=== PATIENT | female | born 1960 | race Caucasian/White ===

== ENCOUNTER → 2017-04-12 | Outpatient (CLI) | payer OTHER ==
[~2017-04-12] MED LIST: ASCO1CAP3 PO; B-COTAB18 PO; BIOT1CHW PO; FOLI800T PO; GABA1CAP4 PO; LEVO75TA5 PO; LPT10 PO; MULTTAB PO; OMEG100046 PO; PRT/40 PO; WARF-246 PO; WARF5TAB7 PO
--- NOTE | 2017-04-12 15:22 | MAMMOGRAPHY REPORT ---
BILATERAL DIGITAL SCREENING MAMMOGRAM TOMOSYNTHESIS WITH CAD: 04/12/2017 CLINICAL HISTORY: Routine screening. Patient has no complaints. TECHNIQUE: Breast tomosynthesis in addition to standard 2D mammography was performed. Current study was also evaluated with a Computer Aided Detection (CAD) system. COMPARISON: Comparison is made to exams dated: 04/10/2016 mammogram, 04/07/2015 mammogram, 04/06/2014 you mogram, 04/02/2013 mammogram, 02/08/2012 mammogram, and 12/23/2010 mammogram - [facility] er. BREAST COMPOSITION: There are scattered areas of fibroglandular density in both breasts. FINDINGS: No suspicious masses, calcifications, or areas of architectural distortion are noted in ei ther breast. There has been no significant interval change compared to prior exams. Scattered bilater al benign-appearing calcifications are not significantly changed. IMPRESSION: ACR BI-RADS CATEGORY 2: BENIGN There is no mammographic evidence of malignancy. A 1 year screening mammogram is recommended. The pa tient will receive written notification of the results. Approximately 10% of breast cancers are not detected with mammography. A negative mammographic report should not delay biopsy if a clinically suggestive mass is present. Natacha Powell M.D. /:04/12/2017 07:48:39 Box Office Attendant: Jessie DESAI)(M), [facility] letter sent: Normal 1/2 BI-RADS Code: ACR BI-RADS Category 2: Benign
== END | disposition home or self-care (01) ==
LOC: C.MAMM 07:26
PROVIDERS: ATTEND Family Medicine
DX: Z12.31 Encounter for screening mammogram for malignant neoplasm of breast (principal)

== ENCOUNTER 2017-04-23 17:56 | Emergency (ER) | payer OTHER ==
[~2017-04-23] VITALS: Ht 160 cm; Wt 111.9 kg
[~2017-04-23 17:56] MED LIST changes: -GABA1CAP4 PO; -LPT10 PO; -WARF5TAB7 PO
[2017-04-23 18:02] VITALS: TEMP 37; Ht 160 cm; Wt 111.9 kg
[2017-04-23 18:22] VITALS: O2SAT 96
[2017-04-23] MEDS ORDERED: OPTIRAY 320 IV PRN (18:30)
[2017-04-23 18:45] LABS: BASO % 0.5 %; BASO ABS # 0.04 K/uL (0-0.2); COMPLETE YES; EOS % 3.9 %; HEMATOCRIT 42.9 % (37-47); IG% 0.1 %; LYMPH % 32.4 %; LYMPH ABS # 2.42 K/uL (1.2-3.4); MEAN CELL VOLUME 87.4 fL (80-100); MEAN CORPUSCULAR HEMOGLOBIN 28.5 pg (25-34); MEAN CORPUSCULAR HGB CONC 32.6 g/dl (32-36); MEAN PLATELET VOLUME 10.4 fL (7.4-10.4); MONO % 8.7 %; NEUT % 54.4 %; PLATELET COUNT 201 K/uL (130-400); RED BLOOD COUNT 4.91 M/uL (4.2-5.4); WHITE BLOOD COUNT 7.46 K/uL (4.8-10.8)
[2017-04-23 18:53] LABS: INR 2.7 (0.9-1.1); PARTIAL THROMBOPLASTIN RATIO 1.4; PROTHROMBIN TIME (PATIENT) 30.3 SECONDS (9.0-12.0)
[2017-04-23] MEDS ORDERED: WARF5TAB7 PO (18:55)
[2017-04-23] MEDS ORDERED: LPT10 PO (18:55)
[2017-04-23] MEDS ORDERED: GABA1CAP4 PO (18:55)
[2017-04-23 19:01] LABS: CALCIUM 8.7 mg/dl (8.5-10.1); CREATININE 0.97 mg/dl (0.60-1.20); POTASSIUM 3.7 mmol/L (3.5-5.1)
--- NOTE | 2017-04-23 19:31 | DIAGNOSTIC IMAGING REPORT ---
CT ANGIOGRAM OF THE CHEST CLINICAL HISTORY: Right-sided chest pain. COMPARISON STUDY: Chest x-ray dated 02/16/2016. Chest CT dated 06/07/2014. TECHNIQUE: Following the IV administration of 89 cc of Optiray 320, CT angiogram of the chest was performed from the upper abdomen to the thoracic inlet utilizing the pulmonary embolus protocol. Images are reviewed in the axial, sagittal, and coronal planes. 3-D MIPS images are created and assessed. IV contrast was administered without complication. A dose lowering technique was utilized adhering to the principles of ALARA. The examination is degraded by large body habitus, and by streak artifact from the body wall abutting the CT gantry. CT DOSE: 711.12 mGy.cm FINDINGS: Thyroid: Atrophic. Thoracic aorta: The thoracic aorta is normal in caliber and demonstrates standard 3-vessel arch anatomy. No dissection is seen. Pulmonary vasculature: The pulmonary trunk is normal in caliber. There are no filling defects identified in main, lobar, or segmental pulmonary branches to suggest pulmonary embolus. Heart: The heart is normal in size and configuration, and without pericardial effusion. Lungs and pleural spaces: Evaluation of the lung parenchyma is modestly degraded by respiratory motion artifact. The trachea and central airways are clear. There is no airspace consolidation or pleural effusion. Dependent atelectasis is noted. Mediastinum: There is no mediastinal lymphadenopathy. Riddhi: Clear. Axillae: There is no axillary lymphadenopathy. Upper abdomen: The liver is enlarged and steatotic. The spleen is top normal in size. Skeletal structures: No lytic or blastic bony lesions are seen. Mild degenerative change is noted in the thoracic spine. IMPRESSION: 1. There is no evidence of pulmonary embolus in the main, lobar, or segmental pulmonary arteries. 2. There is no airspace consolidation or pleural effusion. 3. Hepatic steatosis. Electronically signed by: Vinnie Mesa M.D. 04/23/2017 7:29 PM Dictated Date/Time: 04/23/2017 7:25 PM
--- NOTE | 2017-04-23 20:42 | DIAGNOSTIC IMAGING REPORT ---
ULTRASOUND RIGHT UPPER QUADRANT ABDOMEN CLINICAL HISTORY: Right upper quadrant abdominal pain. COMPARISON STUDY: Nuclear hepatobiliary scan dated 12/13/2011. TECHNIQUE: Real-time, grayscale, and color flow sonography of the right upper quadrant of the abdomen was performed. Images are reviewed in the transverse and longitudinal planes. FINDINGS: Liver: The liver is enlarged measuring over 20 cm in length. The liver demonstrates heterogeneously increased echotexture consistent with hepatic steatosis. Fatty sparing is seen adjacent to gallbladder fossa. There is no intrahepatic biliary ductal dilatation. The main portal vein is patent. Gallbladder: The gallbladder is normal in appearance. No gallstones are identified. There is no gallbladder wall thickening or pericholecystic fluid. A sonographic Diamond's sign is reportedly absent. The common bile duct measures up to 0.5 cm in diameter. Pancreas: Not well visualized due to overlying bowel gas. Right kidney: Survey images of the right kidney demonstrate mild cortical atrophy. There is no hydronephrosis. Ascites: None. IMPRESSION: 1. No acute sonographic abnormality is identified in the right upper quadrant. No gallstones are seen. 2. Hepatomegaly and severe hepatic steatosis. 3. Nonvisualization of the pancreas. Electronically signed by: Vinnie Mesa M.D. 04/23/2017 8:41 PM Dictated Date/Time: 04/23/2017 8:39 PM
--- NOTE | 2017-04-23 21:29 | EMERGENCY ROOM VISIT NOTE ---
History First contact with patient: 18:10 Chief Complaint: CHEST PAIN Stated Complaint: PAIN IN CHEST AROUND BACK Nursing Triage Summary: right sided rib pain that wraps around to her back with shortness of breath x 3 weeks. History of Present Illness The patient is a 57 year old female who presents to the Emergency Room with complaints of pain in the right chest/ribs which radiates into the back. She states the pain has been ongoing for 1 month. She has associated shortness of breath with exertion and at times shortness of breath at rest. She saw her primary care provider and she states they were unsure what is causing the pain. She has a history of PE and states this feels similar. She does take warfarin and states that her INR has been slightly off recently. The patient has a history of factor V Leiden deficiency. She denies any nausea or vomiting associated with the pain. She denies any rashes. Review of Systems A complete 10 point review of systems was reviewed with the patient with pertinent positives and negatives as per history of present illness. All else were negative. Past Medical/Surgical History Medical Problems: (1) Cervical cancer (2) Esophageal Reflux (3) Esophageal Reflux (4) Hypothyroidism (5) Pulmonary embolus Family History Cancer Social History Smoking Status: Former Smoker Alcohol Use: none Marital Status: Housing Status: lives with family Occupation Status: employed Current/Historical Medications Scheduled Ascorbic Acid (Vitamin C), 500 MG PO QAM Atorvastatin (Atorvastatin Calcium), 10 MG PO QPM B-Complex Vitamins (Vitamin B Complex), 1 TAB PO QAM Biotin W/ Vitamins C & E (Hair Skin & Nails ... 1250-7.5-7.5 Mcg-mg-Unt), 1 TAB PO QAM Folic Acid (Folic Acid), 800 MCG PO QAM Gabapentin (Gabapentin), 300 MG PO BID Levothyroxine Sodium (Levothyroxine Sodium), 1 TAB PO DAILY Multivitamins/Minerals (Mvi With Minerals), 1 TAB PO QAM Fiatt-3 Fatty Acids (Fiatt 3), 1 TAB PO QAM Pantoprazole (Pantoprazole Sodium), 40 MG PO QAM Warfarin Sod (Jantoven), 7.5 MG PO SUNDAY Warfarin Sodium (Warfarin Sodium), 5 MG PO [id number] Physical Exam Vital Signs Date Time Temp Pulse Resp B/P (MAP) Pulse Ox O2 Delivery O2 Flow Rate FiO2 04/23/17 21:50 66 20 136/84 96 Room Air 04/23/17 19:51 88 20 144/77 04/23/17 19:10 69 04/23/17 18:22 96 Room Air 04/23/17 18:02 37.0 72 20 133/92 96 Physical Exam VITALS: Vitals are noted on the nurse's note and reviewed by myself. Vital signs stable. GENERAL: This is a 57-year-old female, in no acute distress, nondiaphoretic, well-developed well-nourished. SKIN: The skin was without rashes. EARS: External auditory canals clear, tympanic membranes pearly ibarra without erythema or effusion bilaterally. EYES: Pupils equal round and reactive to light and accommodation. MOUTH: Mucous membranes moist. NECK: Supple without nuchal rigidity. No lymphadenopathy. HEART: Regular rate and rhythm without murmurs gallops or rubs. LUNGS: Clear to auscultation bilaterally without wheezes, rales or rhonchi. ABDOMEN: Soft, nontender to palpation. NEURO: Patient was alert and oriented to person place and time. Medical Decision & Procedures ER Provider Diagnostic Interpretation: CT ANGIOGRAM OF THE CHEST IMPRESSION: 1. There is no evidence of pulmonary embolus in the main, lobar, or segmental pulmonary arteries. 2. There is no airspace consolidation or pleural effusion. 3. Hepatic steatosis. ULTRASOUND RIGHT UPPER QUADRANT ABDOMEN IMPRESSION: 1. No acute sonographic abnormality is identified in the right upper quadrant. No gallstones are seen. 2. Hepatomegaly and severe hepatic steatosis. 3. Nonvisualization of the pancreas. Laboratory Results 04/23/17 18:22 Red Blood Count 4.91, Mean Corpuscular Volume 87.4, Mean Corpuscular Hemoglobin 28.5, Mean Corpuscular Hemoglobin Concent 32.6, Mean Platelet Volume 10.4, Neutrophils (%) (Auto) 54.4, Lymphocytes (%) (Auto) 32.4, Monocytes (%) (Auto) 8.7, Eosinophils (%) (Auto) 3.9, Basophils (%) (Auto) 0.5, Neutrophils # (Auto) 4.05, Lymphocytes # (Auto) 2.42, Monocytes # (Auto) 0.65, Eosinophils # (Auto) 0.29, Basophils # (Auto) 0.04 04/23/17 18:22 Test 7/24/17 18:22 White Blood Count 7.46 K/uL (4.8-10.8) Red Blood Count 4.91 M/uL (4.2-5.4) Hemoglobin 14.0 g/dL (12.0-16.0) Hematocrit 42.9 % (37-47) Mean Corpuscular Volume 87.4 fL (80-100) Mean Corpuscular Hemoglobin 28.5 pg (25-34) Mean Corpuscular Hemoglobin Concent 32.6 g/dl (32-36) Platelet Count 201 K/uL (130-400) Mean Platelet Volume 10.4 fL (7.4-10.4) Neutrophils (%) (Auto) 54.4 % Lymphocytes (%) (Auto) 32.4 % Monocytes (%) (Auto) 8.7 % Eosinophils (%) (Auto) 3.9 % Basophils (%) (Auto) 0.5 % Neutrophils # (Auto) 4.05 K/uL (1.4-6.5) Lymphocytes # (Auto) 2.42 K/uL (1.2-3.4) Monocytes # (Auto) 0.65 K/uL (0.11-0.59) Eosinophils # (Auto) 0.29 K/uL (0-0.5) Basophils # (Auto) 0.04 K/uL (0-0.2) RDW Standard Deviation 43.0 fL (36.4-46.3) RDW Coefficient of Variation 13.3 % (11.5-14.5) Immature Granulocyte % (Auto) 0.1 % Immature Granulocyte # (Auto) 0.01 K/uL (0.00-0.02) Prothrombin Time 30.3 SECONDS (9.0-12.0) Prothromb Time International Ratio 2.7 (0.9-1.1) Activated Partial Thromboplast Time 36.6 SECONDS (21.0-31.0) Partial Thromboplastin Ratio 1.4 Anion Gap 5.0 mmol/L (3-11) Est Creatinine Clear Calc Drug Dose 75.1 ml/min Estimated GFR () 74.1 Estimated GFR (Non- 63.9 BUN/Creatinine Ratio 12.0 (10-20) Calcium Level 8.7 mg/dl (8.5-10.1) Total Bilirubin 0.4 mg/dl (0.2-1) Direct Bilirubin 0.1 mg/dl (0-0.2) Aspartate Amino Transf (AST/SGOT) 18 U/L (15-37) Alanine Aminotransferase (ALT/SGPT) 36 U/L (12-78) Alkaline Phosphatase 77 U/L (45-117) Total Protein 6.7 gm/dl (6.4-8.2) Albumin 3.3 gm/dl (3.4-5.0) Lipase 142 U/L (73-393) ED Course The patient was evaluated as above. Labs were drawn and IV access was obtained. Patient was reevaluated and findings were discussed. She will be discharged home. Discharge instructions were reviewed with the patient. The patient verbalized understanding of my assessment and treatment plan and was discharged home in good condition. Medical Decision Differential diagnosis includes pulmonary embolism, pneumonia, malignancy, rib injury, musculoskeletal, gallbladder disease, among others. The patient is a 57-year-old female who presents today complaining of right flank/rib pain. Patient states this pain is consistent with her previous pulmonary embolism. For this reason, CT angiogram of the chest was performed and read by radiology with no acute PEs noted. Ultrasound of the gallbladder was performed and showed no evidence of gallbladder disease. Labs were unremarkable, with no leukocytosis, anemia or concerning electrolyte abnormalities. Kidney and liver functions were within normal limits. Urinalysis was not suggestive of infection. The patient's pain is likely musculoskeletal in nature. She was encouraged to follow-up with her primary care provider for further evaluation and treatment. Based on the patient's presentation and work up, I feel the patient is stable for outpatient treatment. The patient was educated to return to the emergency department for any worsening of their current condition or new/concerning symptoms. She will follow up with her PCP. Medication Reconcilliation Current Medication List: was personally reviewed by me Blood Pressure Screening Patient's blood pressure: Elevated blood pressure Blood pressure disposition: Elevated BP felt to be situational Impression Primary Impression: Right flank pain Departure Information Dispostion Home / Self-Care Condition GOOD Referrals Heidi Arriola M.D. (MEDICAL) (PCP) Patient Instructions My [facility] Additional Instructions For pain control, you can use the following [id number] medicines (if >12 yo): - Regular strength (325mg/tab) Tylenol (acetaminophen) 2 tabs every 4-6 hours as needed. Do not exceed 12 tablets in a 24 hour period. Avoid taking more than 4 grams (4000 mg) of Tylenol per day. This includes any other sources of acetaminophen you may take on a regular basis. You may apply a heating pad to the ribs for relief. Follow-up with your primary care provider for further evaluation.
[2017-04-23 21:50] VITALS: BP 136/84; PULSE 66; O2SAT 96
== END 2017-04-23 21:52 | disposition home or self-care (01) ==
LOC: C.EDB 17:57 → C.EDA 21:52
DX: R10.30 Lower abdominal pain, unspecified (principal); Z86.711 Personal history of pulmonary embolism; Z79.01 Long term (current) use of anticoagulants; D68.2 Hereditary deficiency of other clotting factors; Z85.41 Personal history of malignant neoplasm of cervix uteri; K21.9 Gastro-esophageal reflux disease without esophagitis; E03.9 Hypothyroidism, unspecified; Z80.9 Family history of malignant neoplasm, unspecified; Z87.891 Personal history of nicotine dependence; Z79.899 Other long term (current) drug therapy

== ENCOUNTER 2021-08-22 12:58 | Observation (INO) ==
[2021-08-22 13:27] LABS: Basophils # (auto) 0.02 K/uL (0-0.2); Basophils % (auto) 0.4 %; Eosinophils # (auto) 0.04 K/uL (0-0.5); Eosinophils % (auto) 0.7 %; Hematocrit (blood only) 46.3 % (37-47); Hemoglobin 15.5 g/dL (12.0-16.0); Immature Granulocytes # (auto) 0.01 K/uL (0.00-0.02); Immature Granulocytes % (auto) 0.2 %; Lymphocytes # (auto) 1.14 K/uL (1.2-3.4); Lymphocytes % (auto) 21.2 %; Mean Corpuscular Hemoglobin 30.5 pg (25-34); Mean Corpuscular Hgb Conc 33.5 g/dL (32-36); Mean Corpuscular Volume 91.1 fL (80-100); Mean Platelet Volume 10.1 fL (7.4-10.4); Monocytes # (auto) 0.69 K/uL (0.11-0.59); Monocytes % (auto) 12.8 %; Neutrophils # (auto) 3.49 K/uL (1.4-6.5); Neutrophils % (auto) 64.7 %; Platelet Count 182 K/uL (130-400); RDW Coefficient of Variation 13.1 % (11.5-14.5); RDW Standard Deviation 43.8 fL (36.4-46.3); Red Blood Count 5.08 M/uL (4.2-5.4); White Blood Count 5.39 K/uL (4.8-10.8)
[2021-08-22 13:37] LABS: INR 1.9 (0.9-1.1); Partial Thromboplastin Ratio 1.3; Partial Thromboplastin Time 33.7 Seconds (21.0-31.0)
--- NOTE | 2021-08-22 13:43 | XRay Report ---
XR chest 2V PA/lateral HISTORY: Atypical Chest Pain COMPARISON: Chest and left rib series 02/13/2021. FINDINGS: The lungs are clear. Cardiac silhouette is normal in size. No pleural effusions. No pneumot horax. IMPRESSION: No acute process. ACT 112: Negative or not required by law. Electronically signed by: Al Gil M.D. 08/22/2021 1:41 PM
[2021-08-22 13:44] LABS: Alanine Aminotransferase 49 U/L (12-78); Albumin Level 3.7 gm/dl (3.4-5.0); Aspartate Aminotransferase 49 U/L (15-37); BUN Creatinine Ratio 15.6 (10-20); Blood Urea Nitrogen 14 mg/dl (7-18); Calcium 9.4 mg/dl (8.5-10.1); Carbon Dioxide 25 mmol/L (21-32); Chloride 107 mmol/L (98-107); Creatinine Clr Calc Pharmacy 78.5 ml/min; Est GFR (African American) 76.8 ml/min; Est GFR (Non-African American) 66.3 ml/min; Glucose 120 mg/dl (70-99); Potassium 3.8 mmol/L (3.5-5.1); Sodium 138 mmol/L (136-145)
[2021-08-22 13:51] LABS: Albumin Globulin Ratio 0.8 (0.9-2); Alkaline Phosphatase 72 U/L (45-117); Bilirubin,Total 0.6 mg/dl (0.2-1); Globulin 4.4 gm/dl (2.5-4.0); Total Protein 8.1 gm/dl (6.4-8.2); Troponin I < 0.015 ng/ml (0-0.045)
[2021-08-22] MEDS ORDERED: OPTIRAY 320 125ml IV ONE (15:52)
--- NOTE | 2021-08-22 16:08 | CT Scan Report ---
CT angio chest PE protocol CT DOSE: 801.67 mGy.cm HISTORY: 61 years-old Female with chest pain, factor V. Acute atypical chest pain with shortness of breath. TECHNIQUE: Multiple CTA images of the chest were obtained after the intravenous administration of 121 ml Optiray. Coronal and sagittal MIPS were obtained from the axial data set and were submitted for review. All measurements were obtained according to NASCET criteria. A dose lowering technique was u tilized adhering to the principles of ALARA. COMPARISON: Chest radiograph of same day, CTA chest 04/23/2017 FINDINGS: CTA: The heart is normal in size. No pericardial effusion. Minimal coronary artery calcifications. No thor acic aortic aneurysm or dissection. Patency of the imaged great vessels. Reflux of contrast into the IVC. Satisfactory opacification of the pulmonary artery. No filling defects to suggest thromboembolic disease. CT CHEST: Unremarkable thyroid. Mildly enlarged bilateral physiologic appearing axillary chain lymph nodes. No pneumothorax, pleural effusion, airspace consolidation or overt pulmonary edema. Minimal venous air w ithin the right retrosternal distribution, possibly iatrogenic from IV site. Mild cylindrical bibasil ar bronchiectasis with minimal bibasilar atelectasis/scarring. Central airways are patent. Hepatosplenomegaly with hepatic steatosis. There is mild distal esophageal wall thickening. Unremarka ble soft tissues. No acute fracture. Spondylitic spurring of the spine. IMPRESSION: 1. No acute intrathoracic abnormality. No pulmonary emboli. 2. Hepatosplenomegaly with hepatic steatosis. 3. Mild nonspecific distal esophageal wall thickening. ACT 112: Negative or not required by law. The above report was generated using voice recognition software. It may contain grammatical, syntax o r spelling errors. Electronically signed by: Chris Naqvi M.D. 08/22/2021 4:06 PM
--- NOTE | 2021-08-22 16:40 | Emergency Department Note ---
Impression & Plan Retrosternal chest pain ED Provider Note INFORMANT: Patient ED PROVIDER(S): Stanislav Pretty MD CHIEF COMPLAINT: Chest pain PLAN: Disposition: Admitted none Condition: Good Outpatient prescription management: none Referral: None MEDICAL DECISION MAKING: Patient presented because of intermittent chest pain. Work-up did not reveal any obvious sign of an elevated troponin. Her ECG was unremarkable. She was pain-free at the time. The patient underwent CT imaging because her INR was slightly subtherapeutic and she has a history of PE. This was negative. Unfortunately the patient's history is concerning given the exertional component and complaints of diaphoresis. She cannot tolerate a treadmill stress test and should have a rule out with formal stress testing before discharge. I discussed this with the patient and she was in agreement. [facility] Case was discussed and diagnostics were reviewed. The patient was evaluated in the ER for further management. Triage Nursing notes reviewed and agree them. Vital Signs: reviewed and remarkable for no significant abnormalities Differential diagnosis: Cardiac ischemia, aortic dissection, pulmonary embolism, pneumothorax, pneumonia, pericarditis, myocarditis, esophageal rupture, GERD, cholecystitis, pancreatitis, musculoskeletal, as well as other pathologies. Diagnostics interpreted by me: ECG: Twelve-lead ECG reveals normal sinus rhythm 73 bpm. Left axis deviation. LVH. Poor R wave progression. No ST elevation. Cardiac Monitoring: Cardiac monitoring ordered by me: The patient was placed on continuous cardiac monitoring and observed. It revealed a normal sinus rhythm at 89 beats per minute without ectopy or evidence of dysrhythmia. Imaging studies: Chest x-ray. Findings: A chest x-ray was performed and revealed no pneumothorax, effusion, infiltrate, pulmonary edema, free air under the diaphragm, or wide mediastinum. Impression: No acute disease. CT PE study is negative for pulmonary embolism. Mild thickening of the distal esophagus noted. I refer you to the EMR for further details. HPI: The patient is a 61 year old female who presents to the Emergency Room with complaints of intermittent retrosternal chest pain that started last night. This started yesterday evening and is fluctuating but worse with exertion. The patient does state that she has been out of her heartburn medication for 2 days. The patient also notes the following associated symptoms, feeling short of breath and sweaty. The patient has used rest for relieving factors. Current pain is rated as 0/10. Has concerns as she has hypercoagulability. States this felt somewhat similar to her prior PE. Pt denies LOC, headache, fevers, chills, visual changes, neck pain, nausea, vomiting, abdominal pain, back pain, melena, hematochezia, urinary symptoms, numbness, weakness, lymphadenopathy, rash, or other complaints. ROS: See above HPI for pertinent positives & negatives. A total of 10 systems reviewed and were otherwise negative. PAST MEDICAL HISTORY:See Below , factor V Leiden, pulmonary embolism, anticoagulated PAST SURGICAL HISTORY:See Below, FAMILY HISTORY:See Below SOCIAL HISTORY:See Below, non-smoker HOME MEDICATIONS:See Below ALLERGIES:See Below VITALS:See Below PHYSICAL EXAMINATION: GENERAL: Awake, alert, well-appearing, in no distress HENT: Normocephalic, atraumatic. Oropharynx unremarkable. EYES: Normal conjunctiva on the left. Bloodshot sclera on the medial aspect of the right eye but otherwise sclera non-icteric. NECK: Inspection normal. Non-tender. Supple. No nuchal rigidity. FROM. No masses. RESPIRATORY: Clear to auscultation. No wheezes. No rales. Normal respiratory effort. CARDIAC: Normal rate. Normal rhythm. No murmurs. No rubs. Extremities warm and well perfused. Pulses equal. No JVD. GI: Soft, non-distended. No tenderness to palpation. No rebound or guarding. No masses. RECTAL: Deferred. MUSCULOSKELETAL: Atraumatic. Chest examination reveals no tenderness. The back is symmetrical on inspection without obvious abnormality. There is no CVA tenderness to palpation. No joint edema. LOWER EXTREMITIES: Calves are equal size bilaterally and non-tender. No edema. No discoloration. NEURO: Normal sensorium. No sensory or motor deficits noted. SKIN: No rash or jaundice noted. Stanislav Pretty MD Past Med/Surg History Medical History (Updated 08/22/21 @ 16:55 by Nupur Yost PA-C) Anxiety Cervical cancer diagnosed 1994--only had cone biopsy performed Depression Factor V Leiden GERD (gastroesophageal reflux disease) History of atrial fibrillation per pt had once was scheduled for a cardioversion and then HR went back into regular rhythm and procedure not performed--follows with Dr. Sierra History of kidney stones Hyperlipidemia Hypothyroidism Osteoarthritis Pulmonary embolus diagnosed 06/2014--found to have Factor V Liden--reason for warfarin Sleep apnea cpap, pt reports compliance, at least 4 hours of use per night, usually 8 hours. Surgical History History of anesthesia reaction severe sore throat for months after cone biopsy procedure History of section History of colonoscopy with polypectomy History of cone biopsy of cervix History of cystoscopy History of tooth extraction Family History Other No family history of adverse response to anesthesia Social History Smoking Status: Former smoker Tobacco Type: Cigarettes Smoking End Date: ; Second Hand Exposure: No; Do You Dip or Chew Tobacco: No; Tobacco Cessation Education Requested by Patient: No Hx Alcohol Use: No Hx Substance Use: No Preferred Language: Libyan Communication Ability: Effective Airport Screener Required: No Beliefs That Will Affect Care: None Current Living Situation: Family Current Living Situation Comment: Lives with and son Feels Safe at Home: Yes Safety Concerns: Feels Safe At This Time Assistive Devices: None Allergies Allergies Allergy/AdvReac Type Severity Reaction Status Date / Time No Known Allergies Allergy Verified 08/22/21 17:04 Home Meds Home Medications Medication Instructions Recorded Confirmed atorvastatin 20 mg tablet 10 mg PO PM 10/02/18 08/22/21 dexlansoprazole 60 mg 60 mg PO HS 10/02/18 08/22/21 capsule,biphase delayed release (Dexilant) duloxetine 30 mg capsule,delayed 60 mg PO QAM 10/02/18 08/22/21 release (Cymbalta) levothyroxine 75 mcg tablet 75 mcg PO QAM 10/02/18 08/22/21 multivitamin 1 tab PO QAM 10/02/18 08/22/21 pantoprazole 40 mg tablet,delayed 40 mg PO QAM 10/02/18 08/22/21 release colestipol 1 gram tablet 1 g PO QAM 10/22/20 08/22/21 warfarin 5 mg tablet 5 mg PO 5XWK 10/22/20 08/22/21 acetaminophen 650 mg 1,300 mg PO Q12H 08/22/21 08/22/21 tablet,extended release (Tylenol Arthritis Pain) multivitamin with minerals 1 tab PO DAILY 08/22/21 08/22/21 (Hair,Skin and Nails) warfarin 5 mg tablet 2.5 mg PO 2XWK 08/22/21 08/22/21 Results & Data (ED) Vital Signs Vital Signs - 24 hr 08/22/21 13:06 08/22/21 14:34 08/22/21 14:35 Temperature 36.3 C L Temperature Source Temporal Artery Scan Pulse Rate 85 81 Pulse Rate [Radial] 84 Pulse Rate from SpO2 Sensor 81 Respiratory Rate 18 20 18 Respiratory Effort / Characteristics Non-Labored Spontaneous Respiratory Depth Normal Blood Pressure 171/99 H 157/87 H Blood Pressure [Right Arm] 157/87 H Blood Pressure Mean 123 110 Blood Pressure Mean [Right Arm] 110 Pulse Oximetry 95 97 95 Oxygen Delivery Method Room Air Room Air Room Air Sepsis Recent Fever Within 48 Hours No Sepsis New/Unexplained Change in Mental Status No Sepsis Action Taken by Nursing No Action Required 08/22/21 15:00 08/22/21 15:30 08/22/21 16:00 Temperature Temperature Source Pulse Rate 79 81 78 Pulse Rate [Radial] Pulse Rate from SpO2 Sensor 80 82 78 Respiratory Rate 17 19 23 Respiratory Effort / Characteristics Respiratory Depth Blood Pressure 122/77 156/80 H Blood Pressure [Right Arm] Blood Pressure Mean 92 105 Blood Pressure Mean [Right Arm] Pulse Oximetry 95 95 96 Oxygen Delivery Method Room Air Room Air Room Air Sepsis Recent Fever Within 48 Hours Sepsis New/Unexplained Change in Mental Status Sepsis Action Taken by Nursing 08/22/21 16:30 Temperature Temperature Source Pulse Rate 80 Pulse Rate [Radial] Pulse Rate from SpO2 Sensor 81 Respiratory Rate 17 Respiratory Effort / Characteristics Respiratory Depth Blood Pressure 120/81 Blood Pressure [Right Arm] Blood Pressure Mean 94 Blood Pressure Mean [Right Arm] Pulse Oximetry 97 Oxygen Delivery Method Room Air Sepsis Recent Fever Within 48 Hours Sepsis New/Unexplained Change in Mental Status Sepsis Action Taken by Nursing Laboratory Data Result diagrams: 08/22/21 13:11 08/22/21 13:11 Lab Results 08/22/21 08/22/21 08/22/21 Range/Units 13:11 13:11 13:11 WBC 5.39 (4.8-10.8) K/uL RBC 5.08 (4.2-5.4) M/uL Hgb 15.5 (12.0-16.0) g/dL Hct 46.3 (37-47) % MCV 91.1 (80-100) fL MCH 30.5 (25-34) pg MCHC 33.5 (32-36) g/dL RDW Std Deviation 43.8 (36.4-46.3) fL RDW Coeff of Shayla 13.1 (11.5-14.5) % Plt Count 182 (130-400) K/uL MPV 10.1 (7.4-10.4) fL Immature Gran % (Auto) 0.2 % Neut % (Auto) 64.7 % Lymph % (Auto) 21.2 % Ada % (Auto) 12.8 % Eos % (Auto) 0.7 % Baso % (Auto) 0.4 % Neut # (Auto) 3.49 (1.4-6.5) K/uL Lymph # (Auto) 1.14 L (1.2-3.4) K/uL Ada # (Auto) 0.69 H (0.11-0.59) K/uL Eos # (Auto) 0.04 (0-0.5) K/uL Baso # (Auto) 0.02 (0-0.2) K/uL Immature Gran # (Auto) 0.01 (0.00-0.02) K/uL PT 18.0 H (9.0-12.0) Seconds INR 1.9 H (0.9-1.1) APTT 33.7 H (21.0-31.0) Seconds PTT Ratio 1.3 Sodium 138 (136-145) mmol/L Potassium 3.8 (3.5-5.1) mmol/L Chloride 107 (98-107) mmol/L Carbon Dioxide 25 (21-32) mmol/L Anion Gap 6.0 (3-11) BUN 14 (7-18) mg/dl Creatinine 0.92 (0.6-1.2) mg/dl Est Cr Clr Drug Dosing 78.5 ml/min Est GFR ( Amer) 76.8 ml/min Est GFR (Non-Af Amer) 66.3 ml/min BUN/Creatinine Ratio 15.6 (10-20) Glucose 120 H (70-99) mg/dl Calcium 9.4 (8.5-10.1) mg/dl Total Bilirubin 0.6 (0.2-1) mg/dl AST 49 H (15-37) U/L ALT 49 (12-78) U/L Alkaline Phosphatase 72 (45-117) U/L Troponin I < 0.015 (0-0.045) ng/ml Total Protein 8.1 (6.4-8.2) gm/dl Albumin 3.7 (3.4-5.0) gm/dl Globulin 4.4 H (2.5-4.0) gm/dl Albumin/Globulin Ratio 0.8 L (0.9-2) SARS-CoV-2, RNA, NAAT (NEGATIVE) 08/22/21 Range/Units 16:50 WBC (4.8-10.8) K/uL RBC (4.2-5.4) M/uL Hgb (12.0-16.0) g/dL Hct (37-47) % MCV (80-100) fL MCH (25-34) pg MCHC (32-36) g/dL RDW Std Deviation (36.4-46.3) fL RDW Coeff of Shayla (11.5-14.5) % Plt Count (130-400) K/uL MPV (7.4-10.4) fL Immature Gran % (Auto) % Neut % (Auto) % Lymph % (Auto) % Ada % (Auto) % Eos % (Auto) % Baso % (Auto) % Neut # (Auto) (1.4-6.5) K/uL Lymph # (Auto) (1.2-3.4) K/uL Ada # (Auto) (0.11-0.59) K/uL Eos # (Auto) (0-0.5) K/uL Baso # (Auto) (0-0.2) K/uL Immature Gran # (Auto) (0.00-0.02) K/uL PT (9.0-12.0) Seconds INR (0.9-1.1) APTT (21.0-31.0) Seconds PTT Ratio Sodium (136-145) mmol/L Potassium (3.5-5.1) mmol/L Chloride (98-107) mmol/L Carbon Dioxide (21-32) mmol/L Anion Gap (3-11) BUN (7-18) mg/dl Creatinine (0.6-1.2) mg/dl Est Cr Clr Drug Dosing ml/min Est GFR ( Amer) ml/min Est GFR (Non-Af Amer) ml/min BUN/Creatinine Ratio (10-20) Glucose (70-99) mg/dl Calcium (8.5-10.1) mg/dl Total Bilirubin (0.2-1) mg/dl AST (15-37) U/L ALT (12-78) U/L Alkaline Phosphatase (45-117) U/L Troponin I (0-0.045) ng/ml Total Protein (6.4-8.2) gm/dl Albumin (3.4-5.0) gm/dl Globulin (2.5-4.0) gm/dl Albumin/Globulin Ratio (0.9-2) SARS-CoV-2, RNA, NAAT NEGATIVE (NEGATIVE) Administered Medications Acetaminophen (Acetaminophen 325 Mg Tab) 650 mg PO Q4H PRN PRN Reason: Moderate Pain Stop: 09/21/21 20:21 Last Admin: 08/22/21 21:34 Dose: 650 mg Documented by: [id number] Atorvastatin Calcium (Atorvastatin 20 Mg Tab) 10 mg PO PM MICHELA Stop: 09/21/21 20:59 Last Admin: 08/22/21 21:24 Dose: 10 mg Documented by: [id number] Famotidine 20 mg/ Syringe 5 mls @ 2.5 mls/min IV BID PRN PRN Reason: Heartburn Stop: 09/21/21 20:59 Last Admin: 08/22/21 22:02 Dose: 2.5 mls/min Documented by: [id number] Discontinued Medications Ioversol (Optiray 320 125ml) 121 ml IV ONCE ONE Stop: 08/22/21 15:53 Last Admin: 08/22/21 15:52 Dose: 121 ml Documented by: [id number] Warfarin Sodium (Warfarin Sod 5 Mg Tab) 5 mg PO NOW ONE Stop: 08/22/21 19:13 Last Admin: 08/22/21 21:23 Dose: Not Given Documented by: [id number] Imaging Data Radiologist's Impression: Chest X-Ray 08/22/21 13:09 XR chest 2V PA/lateral HISTORY: Atypical Chest Pain COMPARISON: Chest and left rib series 02/13/2021. FINDINGS: The lungs are clear. Cardiac silhouette is normal in size. No pleural effusions. No pneumothorax. IMPRESSION: No acute process. ACT 112: Negative or not required by law. Electronically signed by: Al Gil M.D. 08/22/2021 1:41 PM Chest CTA 08/22/21 14:51 CT angio chest PE protocol CT DOSE: 801.67 mGy.cm HISTORY: 61 years-old Female with chest pain, factor V. Acute atypical chest pain with shortness of breath. TECHNIQUE: Multiple CTA images of the chest were obtained after the intravenous administration of 121 ml Optiray. Coronal and sagittal MIPS were obtained from the axial data set and were submitted for review. All measurements were obtained according to NASCET criteria. A dose lowering technique was utilized adhering to the principles of ALARA. COMPARISON: Chest radiograph of same day, CTA chest 04/23/2017 FINDINGS: CTA: The heart is normal in size. No pericardial effusion. Minimal coronary artery calcifications. No thoracic aortic aneurysm or dissection. Patency of the imaged great vessels. Reflux of contrast into the IVC. Satisfactory opacification of the pulmonary artery. No filling defects to suggest thromboembolic disease. CT CHEST: Unremarkable thyroid. Mildly enlarged bilateral physiologic appearing axillary chain lymph nodes. No pneumothorax, pleural effusion, airspace consolidation or overt pulmonary edema. Minimal venous air within the right retrosternal distribution, possibly iatrogenic from IV site. Mild cylindrical bibasilar bronchiectasis with minimal bibasilar atelectasis/scarring. Central airways are patent. Hepatosplenomegaly with hepatic steatosis. There is mild distal esophageal wall thickening. Unremarkable soft tissues. No acute fracture. Spondylitic spurring of the spine. IMPRESSION: 1. No acute intrathoracic abnormality. No pulmonary emboli. 2. Hepatosplenomegaly with hepatic steatosis. 3. Mild nonspecific distal esophageal wall thickening. ACT 112: Negative or not required by law. The above report was generated using voice recognition software. It may contain grammatical, syntax or spelling errors. Electronically signed by: Chris Naqvi M.D. 08/22/2021 4:06 PM Discharge Plan Visit Data Chief Complaint: Chest Pain Stated Complaint: CHEST PAINS ED Provider: Stanislav Pretty Discharge Problem: Retrosternal chest pain Patient Disposition: Admitted As Inpatient Discharge Instructions Interventions: ED Discharge Assessment Last Done: 08/22/21 18:46
--- NOTE | 2021-08-22 17:01 | History & Physical Report ---
Date of Service August 22, 2021 Assessment & Plan (1) Chest pain: Plan: - Admit to tele for observation for r/o -- Primarily this sounds musculoskeletal with ability to reproduce on exam, lifting heavy groceries, laundry and the dog that is 80lbs on her chest. We d iscussed increasing exercise tolerance and diet to loose weight at bedside in length. - Trend cardiac biomarkers, initial set was negative - EKG reviewed as above - Check 2 D echo - If negative enzymes can consider a stress test tomorrow morning - will make NPO at midnight for anticipated dobutamine stress test - pt would not be able to do a treadmill test due to osteoarthritis of the knees. - PT/OT consulted - Consider cardiology consultation (2) Factor V Leiden: Plan: - hx of such, continue anticoagulation with Coumadin (3) History of atrial fibrillation: Plan: - Paroxysmal - Not on rate controlling agent. She is anticoagulated on coumadin. (4) Pulmonary embolus: Plan: - Hx of such, continue on coumadin (5) Hyperlipidemia: Plan: - Cont statin therapy - Check lipid panel with am labs (6) Hypothyroidism: Plan: - Continue levothyroxine 75 mcg daily (7) Osteoarthritis: Plan: - Hx of such DVT ppx: - teds, scds, Coumadin CODE: Dispo: From home, likely to remain in the hospital x 1 day on observation History of Present Illness Chief Complaint: Chest pain Primary Care Provider: Zen Sellers MD This is a 61 yo F with PMHx of paroxysmal A. fib, morbid obesity with BMI of 44.1, HLD, factor V Leiden, hypothyroidism, GERD, [place] who presents with acute intermittent exertional chest pain which started last night. Patient is currently chest pain-free in the ER. Patient notes that she has experienced this chest pain whenever she was sitting at rest, or lying flat. It does not seem to be particularly exertional from her report. She characterizes the chest pain as nonradiating, a heaviness with shortness of breath. Earlier this morning she did become slightly diaphoretic and pale while attempting to do some laundry. She also notes lifting some heavy groceries yesterday where she typically does not participate in this kind of activity. [place] that this feels somewhat like her previous episode of having a pulmonary embolism, was concerned and therefore presented to the ER. She notes having 3 dogs, and that one is approximately 80 pounds, these dogs typically lie on her chest and she admits to having increased pain at that point in time, and the pain is relieved whenever her dogs get off of her chest. She reports having ran out of her omeprazole 3 to 4 days ago and had been taking [id number] Zantac in the meantime. She has experienced nausea x1, no vomiting, tolerating oral intake without difficulty, no diarrhea or constipation. CTA was obtained and is negative for acute PE. INR was slightly subtherapeutic at 1.9. Initial troponin is negative, EKG is reviewed and essentially negative compared to her previous EKGs. Allergies Allergy/AdvReac Type Severity Reaction Status Date / Time No Known Allergies Allergy Verified 08/22/21 17:04 Home Medications Medication Instructions Recorded Confirmed Type atorvastatin 20 mg tablet 10 mg PO PM 10/02/18 08/22/21 History dexlansoprazole 60 mg 60 mg PO HS 10/02/18 08/22/21 History capsule,biphase delayed release (Dexilant) duloxetine 30 mg capsule,delayed 60 mg PO QAM 10/02/18 08/22/21 History release (Cymbalta) levothyroxine 75 mcg tablet 75 mcg PO QAM 10/02/18 08/22/21 History multivitamin 1 tab PO QAM 10/02/18 08/22/21 History pantoprazole 40 mg tablet,delayed 40 mg PO QAM 10/02/18 08/22/21 History release colestipol 1 gram tablet 1 g PO QAM 10/22/20 08/22/21 History warfarin 5 mg tablet 5 mg PO 5XWK 10/22/20 08/22/21 History acetaminophen 650 mg 1,300 mg PO Q12H 08/22/21 08/22/21 History tablet,extended release (Tylenol Arthritis Pain) multivitamin with minerals 1 tab PO DAILY 08/22/21 08/22/21 History (Hair,Skin and Nails) warfarin 5 mg tablet 2.5 mg PO 2XWK 08/22/21 08/22/21 History Past Med/Surg History Medical History (Updated 08/22/21 @ 16:55 by Nupur Yost PA-C) Anxiety Cervical cancer diagnosed 1994--only had cone biopsy performed Depression Factor V Leiden GERD (gastroesophageal reflux disease) History of atrial fibrillation per pt had once was scheduled for a cardioversion and then HR went back into regular rhythm and procedure not performed--follows with Dr. Sierra History of kidney stones Hyperlipidemia Hypothyroidism Osteoarthritis Pulmonary embolus diagnosed 06/2014--found to have Factor V Liden--reason for warfarin Sleep apnea cpap, pt reports compliance, at least 4 hours of use per night, usually 8 hours. Surgical History History of anesthesia reaction severe sore throat for months after cone biopsy procedure History of section History of colonoscopy with polypectomy History of cone biopsy of cervix History of cystoscopy History of tooth extraction Family History Other No family history of adverse response to anesthesia Social History Smoking Status: Never smoker Tobacco Type: Cigarettes Second Hand Exposure: Yes ( smoked/son smokes); Hx Alcohol Use: No Hx Substance Use: No Preferred Language: Tajik Communication Ability: Effective Mercerizing Range Feeder Required: No Beliefs That Will Affect Care: None Current Living Situation: Spouse and Family Current Living Situation Comment: Lives with and son Feels Safe at Home: Yes Assistive Devices: CPAP and Glasses Review of Systems Review of Systems: Constitutional: No fever, sweats or chills Eyes: No diplopia, no worsening or blurred vision ENT: normal hearing, no trouble swallowing Respiratory: No cough, sputum, dyspnea at rest or on exertion, wears BiPAP at night Cardiovascular: As per HPI, currently no chest pain, tightness or palpitations Abdomen: No pain, nausea, vomiting, diarrhea or constipation Musculoskeletal: + Left knee joint pain, no calf pain, no swelling Neurologic: No weakness, numbness/tingling, + balance problems, uses a cane for ambulation assistance Psychiatric: No anxiety or depression Skin: No rash or itch Physical Exam Physical Exam: General: awake, alert, no apparent distress, morbidly obese with BMI of 44.1 Head: Normocephalic, atraumatic ENT: PERRL, EOMI, no pharyngeal exudate, mucous membranes moist Chest: + Reproducible chest pain with palpation of the chest wall over sternum, left and right side of her chest, clear to auscultation, on room air, no adventitious breath sounds Cardiac: Regular rate and rhythm, no murmur, no JVD, normal peripheral pulses, g ood capillary refill Abdominal: NABS x 4 quadrants, soft, nondistended, nontender to palpation, no rebound or guarding Extremities: Normal inspection, no peripheral edema or erythema, calfs nontender to palpation Psych: Normal mood and affect Neuro: AAO x 3, strength intact bilaterally and rated 5/5, no motor deficits, speech is clear, no peripheral sensory deficits Results & Data Results & Data ([facility]) Vital Signs (Past 12 Hours) Vital Signs Temp Pulse Pulse Resp BP BP Pulse Ox 08/22/21 16:30 80 17 120/81 97 08/22/21 16:00 78 23 156/80 H 96 08/22/21 15:30 81 19 95 08/22/21 15:00 79 17 122/77 95 08/22/21 14:35 81 18 157/87 H 95 08/22/21 14:34 84 20 157/87 H 97 08/22/21 13:06 36.3 C L 85 18 171/99 H 95 Diagnostic Findings Chest X-Ray 08/22/21 13:09 XR chest 2V PA/lateral HISTORY: Atypical Chest Pain COMPARISON: Chest and left rib series 02/13/2021. FINDINGS: The lungs are clear. Cardiac silhouette is normal in size. No pleural effusions. No pneumothorax. IMPRESSION: No acute process. ACT 112: Negative or not required by law. Electronically signed by: Al Gil M.D. 08/22/2021 1:41 PM Chest CTA 08/22/21 14:51 CT angio chest PE protocol CT DOSE: 801.67 mGy.cm HISTORY: 61 years-old Female with chest pain, factor V. Acute atypical chest pain with shortness of breath. TECHNIQUE: Multiple CTA images of the chest were obtained after the intravenous administration of 121 ml Optiray. Coronal and sagittal MIPS were obtained from the axial data set and were submitted for review. All measurements were obtained according to NASCET criteria. A dose lowering technique was utilized adhering to the principles of ALARA. COMPARISON: Chest radiograph of same day, CTA chest 04/23/2017 FINDINGS: CTA: The heart is normal in size. No pericardial effusion. Minimal coronary artery calcifications. No thoracic aortic aneurysm or dissection. Patency of the imaged great vessels. Reflux of contrast into the IVC. Satisfactory opacification of the pulmonary artery. No filling defects to suggest thromboembolic disease. CT CHEST: Unremarkable thyroid. Mildly enlarged bilateral physiologic appearing axillary chain lymph nodes. No pneumothorax, pleural effusion, airspace consolidation or overt pulmonary edema. Minimal venous air within the right retrosternal distribution, possibly iatrogenic from IV site. Mild cylindrical bibasilar bronchiectasis with minimal bibasilar atelectasis/scarring. Central airways are patent. Hepatosplenomegaly with hepatic steatosis. There is mild distal esophageal wall thickening. Unremarkable soft tissues. No acute fracture. Spondylitic spurring of the spine. IMPRESSION: 1. No acute intrathoracic abnormality. No pulmonary emboli. 2. Hepatosplenomegaly with hepatic steatosis. 3. Mild nonspecific distal esophageal wall thickening. ACT 112: Negative or not required by law. The above report was generated using voice recognition software. It may contain grammatical, syntax or spelling errors. Electronically signed by: Chris Naqvi M.D. 08/22/2021 4:06 PM ECG Additional Comments: 22-AUG-2021 13:14:14 [facility]-EDSTAT ROUTINE RETRIEVAL Normal sinus rhythm Left axis deviation Minimal voltage criteria for LVH, may be normal variant Cannot rule out Anterior infarct , age undetermined Abnormal ECG When compared with ECG of 23-APR-2017 18:03, No significant change was found 25mm/s 10mm/mV 150Hz 9.0.9 12SL 241 BOAZ: 15 Unconfirmed Vent. rate 73 BPM AR interval 200 ms QRS duration 96 ms QT/QTc 388/427 ms Code Status & VTE Plan Code Status Full code-discussed with the patient at bedside VTE Prophylaxis Plan VTE Prophylaxis will be ordered: Yes Supervising Physician Co-Signing Physician Notes Patient is a 61-year-old female with multiple comorbidities presents with history of epigastric/chest pain since 1 day duration. Currently she is chest pain-free. Also reports associated dyspnea on exertion, diaphoresis. She admits to having heartburn issues. Reports taking vinegar which she believed to help with heartburn. Also states that she ran out of omeprazole. Please review HPI for complete details of presentation. Blood work suggestive of subtherapeutic INR 1.9. Initial troponin negative. EKG showed no significant ST-T wave changes. CTA showed hepatosplenomegaly with hepatic steatosis. Mild nonspecific distal esophageal wall thickening. On exam patient is morbidly obese, no apparent distress, normocephalic atraumatic, normal breath sounds, clear to auscultation, S1-S2, no murmur, no pedal edema, abdomen soft, right upper quadrant tenderness, normal bowel sounds, alert, awake, oriented, grossly no focal deficits Chest pain/epigastric pain Subtherapeutic INR Rule out ACS Differential: Heartburn, rule out gallbladder disease Agree with trending cardiac enzymes, resting echo and repeat EKG in the morning We will obtain right upper quadrant ultrasound to rule out gallbladder disease Started on PPI for heartburn Continue Coumadin Check lipid panel HbA1c Consider cardiology evaluation if needed Will obtain stress echo in AM I personally reviewed the record. Patient is interviewed and examined at bedside. Patient's care is coordinated with Nupur Yost PA-C. Please refer to the documentation above for details of patient's presentation and for discussion of other issues.
[2021-08-22] MEDS ORDERED: WARFARIN SOD 5 MG TAB PO ONE (19:12)
[2021-08-22] MEDS ORDERED: FAMOTIDINE 20 MG in SYRINGE 3 ML IV PRN (19:12)
[2021-08-22] MEDS ORDERED: ONDANSETRON INJ 2 MG/ML 2 ML VIAL IV PRN (20:22)
[2021-08-22] MEDS ORDERED: FLUARIX QUADRIVALENT 0.5 ML SYR IM ONE (20:46)
[2021-08-22] MEDS ORDERED: ATORVASTATIN 20 MG TAB PO SCH (21:00)
[2021-08-22] MEDS: ACETAMINOPHEN 325 MG TAB PO PRN (21:34)
[2021-08-23] MEDS ORDERED: LEVOTHYROXINE SODIUM 75 MCG TABLET PO SCH (06:30)
[2021-08-23] MEDS: ACETAMINOPHEN 325 MG TAB PO PRN (07:25)
[2021-08-23 07:47] LABS: Hematocrit (blood only) 43.4 % (37-47); Hemoglobin 14.4 g/dL (12.0-16.0); Mean Corpuscular Hemoglobin 30.4 pg (25-34); Mean Corpuscular Hgb Conc 33.2 g/dL (32-36); Mean Corpuscular Volume 91.8 fL (80-100); Mean Platelet Volume 10.3 fL (7.4-10.4); Platelet Count 165 K/uL (130-400); RDW Coefficient of Variation 13.2 % (11.5-14.5); RDW Standard Deviation 44.2 fL (36.4-46.3); Red Blood Count 4.73 M/uL (4.2-5.4); White Blood Count 4.39 K/uL (4.8-10.8)
--- NOTE | 2021-08-23 07:54 | Ultrasound Report ---
ABDOMINAL ULTRASOUND, RIGHT UPPER QUADRANT HISTORY: Right upper quadrant pain.. COMPARISON: Abdominal ultrasound 04/23/2017. FINDINGS: Pancreas: The pancreatic tail is obscured by overlying bowel gas. The remaining portions of the pancr eas are within normal limits. Liver: The liver is echogenic consistent with fatty change. The liver measures 21.6 cm in length. Foc al fatty sparing adjacent to the gallbladder fossa. Gallbladder: No gallbladder wall thickening. No gallstones. CBD: 5.8 mm. Right kidney: No hydronephrosis. IMPRESSION: 1. Normal gallbladder. No gallstones. 2. Hepatomegaly demonstrating fatty change. This is similar to the prior study. ACT 112: Negative or not required by law. Electronically signed by: Al Gil M.D. 08/23/2021 7:53 AM
[2021-08-23 08:15] LABS: Alanine Aminotransferase 45 U/L (12-78); Albumin Level 3.2 gm/dl (3.4-5.0); Aspartate Aminotransferase 45 U/L (15-37); BUN Creatinine Ratio 14.3 (10-20); Blood Urea Nitrogen 11 mg/dl (7-18); Calcium 8.5 mg/dl (8.5-10.1); Carbon Dioxide 23 mmol/L (21-32); Chloride 107 mmol/L (98-107); Cholesterol 135 mg/dl (0-200); Creatinine Clr Calc Pharmacy 87.8 ml/min; Est GFR (African American) 90.9 ml/min; Est GFR (Non-African American) 78.5 ml/min; Glucose 110 mg/dl (70-99); Magnesium 2.1 mg/dl (1.8-2.4); Potassium 3.8 mmol/L (3.5-5.1); Sodium 139 mmol/L (136-145)
[2021-08-23 08:18] LABS: Albumin Globulin Ratio 0.8 (0.9-2); Alkaline Phosphatase 61 U/L (45-117); Bilirubin,Total 0.5 mg/dl (0.2-1); Chol HDL Ratio 4; Globulin 3.8 gm/dl (2.5-4.0); HDL Cholesterol 38 mg/dl; LDL Cholesterol Calculated 69 mg/dl; Triglycerides 142 mg/dl (0-150); Troponin I < 0.015 ng/ml (0-0.045); VLDL Cholesterol 28 mg/dl
[2021-08-23] MEDS ORDERED: PANTOprazole 40 MG TAB PO SCH (09:00)
[2021-08-23] MEDS ORDERED: DULoxetine HCL 60 MG CAP PO SCH (09:00)
[2021-08-23 09:36] LABS: Estimated Average Glucose 123 mg/dl; Hemoglobin A1C 5.9 % (4.5-5.6)
[2021-08-23] MEDS: ATROPINE SULFATE 0.1 MG/ML 10ML SYR IV ONE ×2 (10:34→15:01)
[2021-08-23] MEDS: DOBUTamine HCL 12.5 MG/ML 20 ML VIAL IV ONE ×2 (10:34→15:01)
[2021-08-23] MEDS: METOPROLOL TARTRATE 1 MG/ML VIAL IV ONE ×2 (10:34→15:00)
[2021-08-23] MEDS ORDERED: COLESTIPOL HCL 1 GM TAB PO SCH (11:00)
[2021-08-23 11:35] LABS: INR 1.4 (0.9-1.1)
--- NOTE | 2021-08-23 13:50 | Hospitalist Progress Note ---
Date of Service August 23, 2021 Assessment & Plan (1) Chest pain: Plan: Chest pain/epigastric pain Likely due to GERD -Gall Bladder USD:Normal gallbladder. No gallstones. Hepatomegaly demonstrating fatty change. This is similar to the prior study. -Troponin negative -EKG showed nonspecific T wave changes -ECHO/dobutamine stress test; official read pending Discussed with cardiology semaj--nonischemic stress test Continue Protonix Advised to follow-up with cardiology as outpatient Prediabetes HbA1c 5.9 Subtherapeutic INR Continue Coumadin Advised to follow-up with Coumadin clinic upon discharge (2) Factor V Leiden: Plan: - hx of such, continue anticoagulation with Coumadin (3) History of atrial fibrillation: Plan: - Paroxysmal - Not on rate controlling agent. Anticoagulated on coumadin. (4) Pulmonary embolus: Plan: continue on coumadin (5) Hyperlipidemia: Plan: - Continue statin (6) Hypothyroidism: Plan: - Continue levothyroxine 75 mcg daily (7) Osteoarthritis: Plan: DVT px: - teds, scds, Coumadin CODE STATUS: Full Code Disposition: Home Admission and Anticipated Discharge Date Admission Date: August 22, 2021 Subjective Patient is seen and examined at bedside Chest pain completely resolved Denies any abdominal pain, nausea, vomiting, shortness of breath, dizziness Had stress test earlier today Discussed with cardiology semaj Offers no other complaints Review of Systems Review of Systems: All systems reviewed & are unremarkable except as noted in Subjective Physical Exam Physical Exam: Physical Exam: Vitals signs as noted above General Appearance:Morbidly Obese, no apparent distress Head: normocephalic, Atraumatic Eyes: normal inspection, EOMI Neck: supple, Trachea midline Respiratory/Chest: Normal breath sounds, CTA, No accessory muscle use Cardiovascular: S1, S2, No murmur Abdomen/GI:Soft, Non tender, Bowel sounds present Extremities/Musculoskeletal:normal inspection, no edema Neurologic/Psych:AAOX3, grossly no focal neurological deficits Skin: normal color, warm Results & Data Results & Data ([facility]) Vital Signs (Past 12 Hours) Vital Signs Temp Pulse Pulse Resp BP Pulse Ox 08/23/21 11:51 36.7 C 76 18 133/79 92 08/23/21 08:02 36.8 C 77 18 136/54 L 92 08/23/21 08:00 96 H 08/23/21 04:15 37 C 80 12 130/68 95 Laboratory Results Short CBC 08/23/21 Range/Units 07:06 WBC 4.39 L (4.8-10.8) K/uL Hgb 14.4 (12.0-16.0) g/dL Hct 43.4 (37-47) % Plt Count 165 (130-400) K/uL BMP 08/23/21 07:06 Sodium 139 Potassium 3.8 Chloride 107 Carbon Dioxide 23 BUN 11 Creatinine 0.80 Glucose 110 H Calcium 8.5 Cardiac Enzymes 08/22/21 08/23/21 Range/Units 20:37 07:06 Troponin I < 0.015 < 0.015 (0-0.045) ng/ml Liver Function 08/23/21 Range/Units 07:06 Total Bilirubin 0.5 (0.2-1) mg/dl AST 45 H (15-37) U/L ALT 45 (12-78) U/L Alkaline Phosphatase 61 (45-117) U/L Albumin 3.2 L (3.4-5.0) gm/dl
[2021-08-23] MEDS ORDERED: FAMOTIDINE 20 MG TAB PO PRN (13:54)
[2021-08-23] MEDS ORDERED: WARFARIN SOD 10 MG TAB PO ONE (15:00)
--- NOTE | 2021-08-23 15:02 | Discharge Summary ---
Date of Service August 23, 2021 Admission HPI Per Admitting Provider This is a 61 yo F with PMHx of paroxysmal A. fib, morbid obesity with BMI of 44.1, HLD, factor V Leiden, hypothyroidism, GERD, [place] who presents with acute intermittent exertional chest pain which started last night. Patient is currently chest pain-free in the ER. Patient notes that she has experienced this chest pain whenever she was sitting at rest, or lying flat. It does not seem to be particularly exertional from her report. She characterizes the chest pain as nonradiating, a heaviness with shortness of breath. Earlier this morning she did become slightly diaphoretic and pale while attempting to do some laundry. She also notes lifting some heavy groceries yesterday where she typically does not participate in this kind of activity. [place] that this feels somewhat like her previous episode of having a pulmonary embolism, was concerned and therefore presented to the ER. She notes having 3 dogs, and that one is approximately 80 pounds, these dogs typically lie on her chest and she admits to having increased pain at that point in time, and the pain is relieved whenever her dogs get off of her chest. She reports having ran out of her omeprazole 3 to 4 days ago and had been taking [id number] Zantac in the meantime. She has experienced nausea x1, no vomiting, tolerating oral intake without difficulty, no diarrhea or constipation. CTA was obtained and is negative for acute PE. INR was slightly subtherapeutic at 1.9. Initial troponin is negative, EKG is reviewed and essentially negative compared to her previous EKGs. Admission Exam Per Admitting Provider Physical Exam Physical Exam: General: awake, alert, no apparent distress, morbidly obese with BMI of 44.1 Head: Normocephalic, atraumatic ENT: PERRL, EOMI, no pharyngeal exudate, mucous membranes moist Chest: + Reproducible chest pain with palpation of the chest wall over sternum, left and right side of her chest, clear to auscultation, on room air, no adventitious breath sounds Cardiac: Regular rate and rhythm, no murmur, no JVD, normal peripheral pulses, good capillary refill Abdominal: NABS x 4 quadrants, soft, nondistended, nontender to palpation, no rebound or guarding Extremities: Normal inspection, no peripheral edema or erythema, calfs nontender to palpation Psych: Normal mood and affect Neuro: AAO x 3, strength intact bilaterally and rated 5/5, no motor deficits, speech is clear, no peripheral sensory deficits Principal Diagnosis Atypical chest pain GERD Subtherapeutic INR Discharge Data Allergies Allergy/AdvReac Type Severity Reaction Status Date / Time No Known Allergies Allergy Verified 08/22/21 17:04 Ordered Studies 08/22/21 14:51 CT angio chest PE protocol Stat 08/23/21 US gallbladder Routine Hospital Course (1) Chest pain: Chest pain/epigastric pain Likely due to GERD -Gall Bladder USD:Normal gallbladder. No gallstones. Hepatomegaly demonstrating fatty change. This is similar to the prior study. -Troponin negative -EKG showed nonspecific T wave changes -ECHO/dobutamine stress test; official read pending Discussed with cardiology titaide--nonischemic stress test Continue Protonix Advised to follow-up with cardiology as outpatient Prediabetes HbA1c 5.9 Subtherapeutic INR Continue Coumadin Advised to follow-up with Coumadin clinic upon discharge (2) Factor V Leiden: - hx of such, continue anticoagulation with Coumadin (3) History of atrial fibrillation: - Paroxysmal - Not on rate controlling agent. Anticoagulated on coumadin. (4) Pulmonary embolus: continue on coumadin (5) Hyperlipidemia: - Continue statin (6) Hypothyroidism: - Continue levothyroxine 75 mcg daily (7) Osteoarthritis: DVT px: - teds, scds, Coumadin CODE STATUS: Full Code Disposition: Home Total Time Total Time Spent Total Time Spent (In Minutes): 45 minutes Discharge Plan Discharge Items Patient Disposition: Home - Self-Care Reason For Visit: CHEST PAIN Discharge Diagnosis: Atypical chest pain GERD Subtherapeutic INR Activity: Per Instructions section Exercise/Sports: Gradually increase as tolerated Non-emergency contact: Primary Care Provider Call non-emergency contact if: you have any medication questions, your symptoms worsen, your pain is concerning for you and you have a fever Follow-up/Referrals: Zen Sellers MD [Primary Care Provider] - (Date & Time 08/26/2021 11:10 AM Provider Susan Oliveros DO Department [facility] ) Diet: Heart Healthy Add Attending Provider Instructions: Follow-up with your primary care physician on 08/26/2021 11:10 AM Follow-up with Coumadin clinic on 08/24/21 as advised ---Get Blood test (PT/INR) tomorrow 08/24/21 and follow-up with Coumadin clinic for adjustment of your Coumadin dosing and monitoring your PT/INR. Seek immediate medical attention if your symptoms reoccur or worsen Please take all medications as instructed on discharge list below. Please call if you have any questions or problems. You can reach a [facility] hospitalist on duty at [facility] 24 hours a day by calling [phone] Pending Studies at Discharge: No Stand-Alone Forms: My [facility], Smoking Cessation Medications and DC Order Prescriptions: Continued multivitamin Tablet 1 tab PO QAM RF: 0 atorvastatin 20 mg Tablet 10 mg PO PM RF: 0 levothyroxine 75 mcg tablet 75 mcg PO QAM RF: 0 duloxetine [Cymbalta] 30 mg Capsule,Delayed Release(Dr/Ec) 60 mg PO QAM RF: 0 Dexilant 60 mg Capsule,Biphase Delayed Releas 60 mg PO HS RF: 0 warfarin 5 mg Tablet 5 mg PO 5XWK RF: 0 colestipol 1 gram Tablet 1 g PO QAM RF: 0 warfarin 5 mg tablet 2.5 mg PO 2XWK RF: 0 acetaminophen [Tylenol Arthritis Pain] 650 mg Tablet Extended Release 1,300 mg PO Q12H RF: 0 multivitamin with minerals [Hair,Skin and Nails] Tablet 1 tab PO DAILY RF: 0 pantoprazole 40 mg tablet,delayed release (DR/EC) 40 mg PO QAM Qty: 30 RF: 2 Discharge Orders: Discharge Order (Routine); Ordered 08/23/21 Ordered By: Gene Stroud Admission Data Admit Date/Time: 08/22/21 16:51 Attending Provider: Gene Stroud Admit Provider: Gene Stroud Primary Care Provider: Zen Sellers
[2021-08-23] MEDS ORDERED: WARFARIN SOD 5 MG TAB PO SCH (16:00)
--- NOTE | 2021-08-24 06:35 | Electrocardiogram Report ---
Test Reason : Blood Pressure : / mmHG Vent. Rate : 073 BPM Atrial Rate : 073 BPM P-R Int : 200 ms QRS Dur : 096 ms QT Int : 388 ms P-R-T Axes : 020 -33 003 degrees QTc Int : 427 ms Normal sinus rhythm Left axis deviation Minimal voltage criteria for LVH, may be normal variant Cannot rule out Anterior infarct , age undetermined Abnormal ECG When compared with ECG of 23-APR-2017 18:03, No significant change was found Confirmed by Bib Paiz ([id number]) on 08/24/2021 6:35:05 AM Referred By: Confirmed By:Bib Paiz
--- NOTE | 2021-08-24 14:54 | Electrocardiogram Report ---
Test Reason : Blood Pressure : / mmHG Vent. Rate : 081 BPM Atrial Rate : 081 BPM P-R Int : 182 ms QRS Dur : 092 ms QT Int : 396 ms P-R-T Axes : - - -24 degrees QTc Int : 460 ms Normal sinus rhythm Incomplete right bundle branch block Cannot rule out Anterior infarct (cited on or before 22-AUG-2021) Abnormal ECG When compared with ECG of 22-AUG-2021 13:14, No significant change Confirmed by Bib Paiz ([id number]) on 08/24/2021 2:53:45 PM Referred By: REFERRED SELF Confirmed By:Bib Paiz
== END 2021-08-23 15:49 | disposition home or self-care (01) ==
LOC: 2S 12:58 → ED 12:58 → 2S 18:46